=== PATIENT | male | born 1950 | race Caucasian/White ===

== ENCOUNTER 2020-12-15 20:50 | Emergency (ER) | payer MEDICARE, OTHER ==
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
[2020-12-15 22:31] LABS: CORONAVIRUS COVID-19 NAA POSITIVE (NEGATIVE)
[2020-12-16] MEDS ORDERED: Albuterol/Ipratropium 3.0-0.5 MG/3 ML Neb Soln NEB ONE (00:01)
[2020-12-16 00:43] VITALS: BP 139/64; PULSE 112
--- NOTE | 2020-12-18 09:56 | CR ---
CHEST: Portable 12/15/2020 at 10:07 PM CLINICAL HISTORY:Cough COMPARISON:None FINDINGS: There is mild generalized prominence of the lung markings. This may be technical and due to the patient's size. No significant airspace disease or effusion is identified. Impression: Mild generalized increase in the lung markings is most likely technical. If clinical symptomatology persists or worsens a repeat exam is recommended.
== END 2020-12-16 01:41 | disposition other institution (70) ==
LOC: JP.ED 20:50
DX: U07.1 COVID-19 (principal); I48.91 Unspecified atrial fibrillation; Z88.5 Allergy status to narcotic agent; Z88.0 Allergy status to penicillin; Z79.899 Other long term (current) drug therapy
CPT/HCPCS: 0241U; 36415; 71045; 80053; 84484; 85025; 94640; 99285; J7620-GY

== ENCOUNTER 2024-07-03 09:47 | Inpatient (IN) | payer MEDICARE, OTHER ==
[2024-07-03] MEDS: Albuterol/Ipratropium 3.0-0.5 MG/3 ML Neb Soln NEB ONE (10:30)
[2024-07-03] MEDS: Sodium Chloride 0.9% 500 ML IV ONE (10:34)
[2024-07-03] MEDS: methylPREDNISolone Sodium Succinate 125 MG/2 ML SDV ONE (10:34)
[2024-07-03] MEDS: methylPREDNISolone Sodium Succinate 125 MG/2 ML SDV IVPUSH ONE (10:34)
[2024-07-03] MEDS: Diltiazem 180 MG Cap.CD PO ONE (10:34)
[2024-07-03 10:41] LABS: BASOPHILS ABSOLUTE AUTO 0.03 K/uL (0.00-0.10); BASOPHILS PERCENT AUTO 0.2 % (0.1-1.3); HEMATOCRIT 38.9 % (38.4-49.7); HEMOGLOBIN 13.1 g/dL (12.9-16.9); IMMATURE GRAN ABSOLUTE AUTO 0.12 K/uL (0.00-0.23); IMMATURE GRAN PERCENT AUTO 0.7 % (0.0-0.7); LYMPHOCYTES PERCENT AUTO 4.1 % (11.4-47.7); MEAN CORPUSCULAR HEMOGLOBIN 30.5 pg (31.6-35.5); MEAN CORPUSCULAR HGB CONC 33.7 g/dL (31.6-35.5); MEAN CORPUSCULAR VOLUME 90.5 fL (81.4-99.0); MONOCYTES ABSOLUTE AUTO 1.58 K/uL (0.20-0.90); MONOCYTES PERCENT AUTO 9.3 % (3.3-12.6); NEUTROPHILS ABSOLUTE AUTO 14.56 K/uL (1.0-7.6); NEUTROPHILS PERCENT AUTO 85.7 % (40.0-78.1); PLATELET COUNT,PLT 343 K/uL (130-375)
[2024-07-03] MEDS: methylPREDNISolone Sod Succ 125 MG in Dextrose 5% in Water 100 ML IV ONE (10:41)
[2024-07-03 11:14] LABS: CORONAVIRUS COVID-19 NAA NEGATIVE (NEGATIVE); INFLUENZA A NAA NEGATIVE (NEGATIVE); INFLUENZA B NAA NEGATIVE (NEGATIVE); RESPIRATORY SYNCYTIAL VIR NAA NEGATIVE (NEGATIVE)
[2024-07-03] MEDS: Levalbuterol HCl 1.25 MG/3 ML Neb NEB ONE (11:15)
[2024-07-03 11:35] LABS: A/G RATIO 0.6 (1.2-2.2); ALANINE AMINOTRANSFERASE,ALT 68 U/L (12-78); ALBUMIN 2.8 g/dL (3.4-5.0); ALKALINE PHOSPHATASE 112 U/L (46-116); ASPARTATE AMNIOTRANSFERASE,AST 70 U/L (15-37); BLOOD UREA NITROGEN,BUN 35 mg/dL (7-18); CALCIUM 10.3 mg/dL (8.5-10.1); CARBON DIOXIDE,CO2 30 mmol/L (21-32); CHLORIDE,CL 97 mmol/L (100-108); CREATININE 1.2 mg/dL (0.8-1.3); ESTIMATED GFR 63 mL/min (>60); GLUCOSE RANDOM 243 mg/dL (74-106); POTASSIUM,K 3.3 mmol/L (3.6-5.2); PROTEIN TOTAL,TP 7.4 g/dL (6.4-8.2); SODIUM,NA 138 mmol/L (140-148)
[2024-07-03 11:37] LABS: ANION GAP 14.3 mmol/L (5.0-14.0)
[2024-07-03] MEDS: Levofloxacin/Dextrose 5%-Water 750 MG in Premix Bag 1 BAG IV SCH (13:28)
[2024-07-03] MEDS: Meropenem 1 GM in Sodium Chloride 0.9% 100 ML IV ONE (13:30)
[2024-07-03] MEDS ORDERED: Benzonatate 100 MG Cap PO PRN (14:13)
[2024-07-03] MEDS ORDERED: Ondansetron 4 MG/2 ML SDV IV PRN (14:13)
[2024-07-03] MEDS ORDERED: Ondansetron 4 MG Tab.DIS PO PRN (14:13)
[2024-07-03] MEDS: Albuterol/Ipratropium 3.0-0.5 MG/3 ML Neb Soln NEB SCH (14:35)
[2024-07-03] MEDS: methylPREDNISolone Sodium Succinate 125 MG/2 ML SDV IVPUSH SCH (15:51)
[2024-07-03 17:17] LABS: BASE EXCESS ARTERIAL 3.9 mm/L; BICARBONATE,ARTERIAL 27.8 mmol/L (22.0-26.0); CARBOXYHEMOGLOBIN 2.4 % (0.0-1.6); METHEMOGLOBIN 0.8 %; O2 SATURATION ARTERIAL 97.7 % (95.0-98.0); OXYHEMOGLOBIN 94.6 %; PCO2 ARTERIAL 40.7 mmHg (35.0-42.0); TOTAL HEMOGLOBIN 13.1 g/dL (13.5-18.0)
[2024-07-03] MEDS: Insulin Lispro 100 Unit/ML 3 ML KwikPen SUBCUT SCH (17:17)
[2024-07-03] MEDS: Insulin Isophane NPH, Human 100 Units/ML 10 ML Vial SUBCUT SCH (17:17)
[2024-07-03] MEDS: Potassium Chloride 20 MEQ Tab.ER PO ONE (18:11)
[2024-07-03] MEDS: Rosuvastatin 10 MG Tab PO SCH (21:20)
[2024-07-03] MEDS: Apixaban 5 MG Tab PO SCH (21:20)
[2024-07-03] MEDS: Lactobacillus Rhamnosus GG (Probiotic) Cap PO SCH (21:20)
[2024-07-03] MEDS: sulfaSALAzine 500 MG Tab PO SCH (21:20)
[2024-07-03] MEDS: Sodium Chloride 0.9% 1,000 ML IV SCH (22:09)
[2024-07-03 23:16] LABS: APPEARANCE,URINE SLIGHTLY CLOUDY (CLEAR); BILIRUBIN,URINE NEGATIVE (NEGATIVE); COLOR,URINE YELLOW (YELLOW); GLUCOSE,URINE 500 mg/dL (NEGATIVE); KETONES,URINE TRACE mg/dL (NEGATIVE); LEUKOCYTE ESTERASE,URINE NEGATIVE (NEGATIVE); NITRITE,URINE NEGATIVE (NEGATIVE); OCCULT BLOOD,URINE TRACE-LYSED (NEGATIVE); PROTEIN,URINE 100 mg/dL (NEGATIVE); UROBILINOGEN,URINE 0.2 EU/dL (0.2-1.0)
[2024-07-03 23:22] LABS: AMORPHOUS SEDIMENT,URINE FEW; BACTERIA,URINE FEW; EPITHELIAL CELLS,URINE FEW; MUCUS,URINE MANY; WBC,URINE 0-5 (0-5)
[2024-07-04 04:49] LABS: BASE EXCESS ARTERIAL 3.7 mm/L; BICARBONATE,ARTERIAL 27.3 mmol/L (22.0-26.0); CARBOXYHEMOGLOBIN 1.7 % (0.0-1.6); HEMATOCRIT 38.5 % (38.4-49.7); MEAN CORPUSCULAR HEMOGLOBIN 30.4 pg (31.6-35.5); MEAN CORPUSCULAR HGB CONC 33.8 g/dL (31.6-35.5); MEAN CORPUSCULAR VOLUME 90.2 fL (81.4-99.0); METHEMOGLOBIN 0.8 %; O2 SATURATION ARTERIAL 93.2 % (95.0-98.0); OXYHEMOGLOBIN 90.9 %; PCO2 ARTERIAL 39.4 mmHg (35.0-42.0); PO2 ARTERIAL 69.5 mmHg (75.0-100.0); RED BLOOD CELL COUNT 4.27 M/uL (4.14-5.76); TOTAL HEMOGLOBIN 13.5 g/dL (13.5-18.0); WHITE BLOOD CELL COUNT,WBC 18.1 K/uL (3.2-11.0)
[2024-07-04 05:09] LABS: CALCIUM 10.1 mg/dL (8.5-10.1); EST CRCL DRUG DOSING (CG) 68.98 mL/min; POTASSIUM,K 3.3 mmol/L (3.6-5.2)
[2024-07-04 05:16] LABS: MAGNESIUM 1.8 mg/dL (1.8-2.4)
[2024-07-04 05:23] LABS: ANION GAP 14.3 mmol/L (5.0-14.0)
[2024-07-04] MEDS: Insulin Isophane NPH, Human 100 Units/ML 10 ML Vial SUBCUT SCH ×2 (08:15→16:46)
[2024-07-04] MEDS: predniSONE 20 MG Tab PO SCH (08:23)
[2024-07-04] MEDS: Diltiazem 180 MG Cap.CD PO SCH (09:19)
[2024-07-04] MEDS: Folic Acid 1 MG Tab PO SCH (09:21)
[2024-07-04] MEDS: Hydrochlorothiazide 25 MG Tab PO SCH (09:21)
[2024-07-04] MEDS: amLODIPine 5 MG Tab PO SCH (09:22)
[2024-07-04] MEDS: Lisinopril 20 MG Tab PO SCH (09:23)
[2024-07-04] MEDS: Cetirizine 10 MG Tab PO SCH (09:24)
[2024-07-04] MEDS: Levothyroxine 100 MCG Tab PO SCH (09:26)
[2024-07-04] MEDS: Potassium Chloride 10 MEQ in Premix Bag 1 BAG IV SCH (09:39)
[2024-07-04] MEDS ORDERED: Glucagon,Human Recombinant 1 MG Vial IM PRN (16:32)
[2024-07-04] MEDS ORDERED: 50% Dextrose in Water 50 ML Syringe IVPUSH PRN (16:32)
[2024-07-04] MEDS: Insulin Lispro 100 Unit/ML 3 ML KwikPen SUBCUT ONE ×2 (16:46→21:55)
[2024-07-05 05:42] LABS: HEMATOCRIT 36.4 % (38.4-49.7); HEMOGLOBIN 12.1 g/dL (12.9-16.9); MEAN CORPUSCULAR HEMOGLOBIN 30.2 pg (31.6-35.5); MEAN CORPUSCULAR HGB CONC 33.2 g/dL (31.6-35.5); MEAN CORPUSCULAR VOLUME 90.8 fL (81.4-99.0); RED BLOOD CELL COUNT 4.01 M/uL (4.14-5.76); WHITE BLOOD CELL COUNT,WBC 17.5 K/uL (3.2-11.0)
[2024-07-05 06:01] LABS: C-REACTIVE PROTEIN 11.01 mg/dL (<0.50); CALCIUM 9.7 mg/dL (8.5-10.1); CREATININE 1.3 mg/dL (0.8-1.3); EST CRCL DRUG DOSING (CG) 53.06 mL/min; POTASSIUM,K 3.6 mmol/L (3.6-5.2)
[2024-07-05 06:02] LABS: ANION GAP 12.6 mmol/L (5.0-14.0)
[2024-07-05] MEDS: Levofloxacin 250 MG Tab PO SCH (11:31)
[2024-07-05] MEDS: Potassium Chloride 20 MEQ Tab.ER PO ONE (11:31)
[2024-07-05] MEDS: Insulin Lispro 100 Unit/ML 3 ML KwikPen SUBCUT SCH (11:32)
[2024-07-05] MEDS: Insulin Isophane NPH, Human 100 Units/ML 10 ML Vial SUBCUT SCH (17:39)
[2024-07-06 06:08] LABS: HEMOGLOBIN 12.9 g/dL (12.9-16.9); MEAN CORPUSCULAR HEMOGLOBIN 30.2 pg (31.6-35.5); MEAN CORPUSCULAR HGB CONC 33.1 g/dL (31.6-35.5); MEAN CORPUSCULAR VOLUME 91.3 fL (81.4-99.0); RED BLOOD CELL COUNT 4.27 M/uL (4.14-5.76); WHITE BLOOD CELL COUNT,WBC 12.8 K/uL (3.2-11.0)
[2024-07-06 06:26] LABS: CALCIUM 10.2 mg/dL (8.5-10.1); CREATININE 1.2 mg/dL (0.8-1.3); EST CRCL DRUG DOSING (CG) 57.48 mL/min; POTASSIUM,K 3.6 mmol/L (3.6-5.2)
[2024-07-06 06:33] LABS: ANION GAP 10.6 mmol/L (5.0-14.0)
[2024-07-06] MEDS: predniSONE 20 MG Tab PO SCH (08:35)
[2024-07-06] MEDS: Magnesium Hydroxide 400 MG/5 ML Susp 30 ML Cup PO PRN (09:27)
[2024-07-06] MEDS: Sennosides/Docusate Sodium 50-8.6 MG Tab PO PRN (09:27)
[2024-07-06] MEDS: Insulin Isophane NPH, Human 100 Units/ML 10 ML Vial SUBCUT SCH (16:40)
[2024-07-06] MEDS: Acetaminophen 325 MG Tab PO PRN (19:06)
[2024-07-07 06:13] LABS: HEMATOCRIT 41.5 % (38.4-49.7); HEMOGLOBIN 13.8 g/dL (12.9-16.9); MEAN CORPUSCULAR HEMOGLOBIN 29.9 pg (31.6-35.5); MEAN CORPUSCULAR HGB CONC 33.3 g/dL (31.6-35.5); RED BLOOD CELL COUNT 4.61 M/uL (4.14-5.76); WHITE BLOOD CELL COUNT,WBC 11.7 K/uL (3.2-11.0)
[2024-07-07 06:38] LABS: A/G RATIO 0.5 (1.2-2.2); ALANINE AMINOTRANSFERASE,ALT 90 U/L (12-78); ALBUMIN 2.5 g/dL (3.4-5.0); ALKALINE PHOSPHATASE 110 U/L (46-116); ANION GAP 8.3 mmol/L (5.0-14.0); ASPARTATE AMNIOTRANSFERASE,AST 43 U/L (15-37); BILIRUBIN TOTAL 0.5 mg/dL (0.2-1.0); BLOOD UREA NITROGEN,BUN 25 mg/dL (7-18); CALCIUM 10.1 mg/dL (8.5-10.1); CARBON DIOXIDE,CO2 34 mmol/L (21-32); CHLORIDE,CL 99 mmol/L (100-108); CREATININE 1.1 mg/dL (0.8-1.3); EST CRCL DRUG DOSING (CG) 62.71 mL/min; ESTIMATED GFR 70 mL/min (>60); GLUCOSE RANDOM 120 mg/dL (74-106); POTASSIUM,K 3.3 mmol/L (3.6-5.2); PROTEIN TOTAL,TP 7.2 g/dL (6.4-8.2); SODIUM,NA 138 mmol/L (140-148)
[2024-07-07] MEDS: Potassium Chloride 20 MEQ Tab.ER PO SCH (08:13)
[2024-07-07] MEDS: traMADol 50 MG Tab PO PRN (11:06)
[2024-07-07] MEDS: Doxycycline 100 MG Cap PO SCH (15:26)
[2024-07-07] MEDS: Cefepime 2 GM in Sodium Chloride 0.9% 50 ML IV SCH (15:27)
[2024-07-08] MEDS: Albuterol 0.083% 2.5 MG/3 ML Neb Soln NEB PRN (02:00)
[2024-07-08 05:57] LABS: HEMATOCRIT 39.6 % (38.4-49.7); MEAN CORPUSCULAR HGB CONC 32.8 g/dL (31.6-35.5); MEAN CORPUSCULAR VOLUME 91.5 fL (81.4-99.0); RED BLOOD CELL COUNT 4.33 M/uL (4.14-5.76); WHITE BLOOD CELL COUNT,WBC 12.6 K/uL (3.2-11.0)
[2024-07-08 06:20] LABS: A/G RATIO 0.6 (1.2-2.2); ALANINE AMINOTRANSFERASE,ALT 72 U/L (12-78); ALBUMIN 2.3 g/dL (3.4-5.0); ALKALINE PHOSPHATASE 95 U/L (46-116); ASPARTATE AMNIOTRANSFERASE,AST 34 U/L (15-37); BILIRUBIN TOTAL 0.5 mg/dL (0.2-1.0); BLOOD UREA NITROGEN,BUN 29 mg/dL (7-18); CALCIUM 9.8 mg/dL (8.5-10.1); CARBON DIOXIDE,CO2 36 mmol/L (21-32); CHLORIDE,CL 95 mmol/L (100-108); CREATININE 1.3 mg/dL (0.8-1.3); EST CRCL DRUG DOSING (CG) 53.06 mL/min; ESTIMATED GFR 57 mL/min (>60); GLUCOSE RANDOM 165 mg/dL (74-106); POTASSIUM,K 3.7 mmol/L (3.6-5.2); PROTEIN TOTAL,TP 6.3 g/dL (6.4-8.2); SODIUM,NA 136 mmol/L (140-148)
[2024-07-08 06:24] LABS: ANION GAP 8.7 mmol/L (5.0-14.0)
[2024-07-08] MEDS: Furosemide 20 MG/2 ML VIAL IVPUSH ONE (09:52)
[2024-07-08] MEDS: Polyethylene Glycol 3350 Powder 17 GM Packet PO SCH (09:52)
[2024-07-08] MEDS: Bisacodyl 10 MG Supp RECTAL PRN (14:29)
[2024-07-09] MEDS: Furosemide 20 MG/2 ML VIAL IVPUSH ONE (05:39)
[2024-07-09 05:49] LABS: HEMATOCRIT 41.6 % (38.4-49.7); HEMOGLOBIN 13.8 g/dL (12.9-16.9); MEAN CORPUSCULAR HEMOGLOBIN 29.9 pg (31.6-35.5); MEAN CORPUSCULAR HGB CONC 33.2 g/dL (31.6-35.5); MEAN CORPUSCULAR VOLUME 90.2 fL (81.4-99.0); RED BLOOD CELL COUNT 4.61 M/uL (4.14-5.76); WHITE BLOOD CELL COUNT,WBC 15.2 K/uL (3.2-11.0)
[2024-07-09 06:13] LABS: A/G RATIO 0.5 (1.2-2.2); ALANINE AMINOTRANSFERASE,ALT 64 U/L (12-78); ALBUMIN 2.3 g/dL (3.4-5.0); ALKALINE PHOSPHATASE 97 U/L (46-116); ANION GAP 11.8 mmol/L (5.0-14.0); ASPARTATE AMNIOTRANSFERASE,AST 32 U/L (15-37); BILIRUBIN TOTAL 0.6 mg/dL (0.2-1.0); BLOOD UREA NITROGEN,BUN 32 mg/dL (7-18); CALCIUM 9.9 mg/dL (8.5-10.1); CARBON DIOXIDE,CO2 31 mmol/L (21-32); CHLORIDE,CL 97 mmol/L (100-108); CREATININE 1.3 mg/dL (0.8-1.3); EST CRCL DRUG DOSING (CG) 53.06 mL/min; ESTIMATED GFR 57 mL/min (>60); GLUCOSE RANDOM 107 mg/dL (74-106); POTASSIUM,K 3.8 mmol/L (3.6-5.2); PROTEIN TOTAL,TP 7.2 g/dL (6.4-8.2); SODIUM,NA 136 mmol/L (140-148)
[2024-07-09 08:29] LABS: BASE EXCESS ARTERIAL 8.9 mm/L; BICARBONATE,ARTERIAL 30.5 mmol/L (22.0-26.0); CARBOXYHEMOGLOBIN 2.5 % (0.0-1.6); METHEMOGLOBIN 0.8 %; O2 SATURATION ARTERIAL 88.9 % (95.0-98.0); PCO2 ARTERIAL 30.8 mmHg (35.0-42.0); PO2 ARTERIAL 49.9 mmHg (75.0-100.0); TOTAL HEMOGLOBIN 14.6 g/dL (13.5-18.0)
[2024-07-09] MEDS: Sodium Phosphate,Monobasic/Sodium Phosphate,Dibasic Enema 133 ML Bottle RECTAL ONE (09:37)
[2024-07-09] MEDS: LORazepam 2 MG/ML SDV IVPUSH PRN (20:28)
[2024-07-10] MEDS: guaiFENesin/Dextromethorphan 100-10 MG/5 ML Soln 10 ML Cup PO PRN (02:05)
[2024-07-10 05:51] LABS: HEMATOCRIT 41.5 % (38.4-49.7); HEMOGLOBIN 13.5 g/dL (12.9-16.9); MEAN CORPUSCULAR HEMOGLOBIN 29.5 pg (31.6-35.5); MEAN CORPUSCULAR HGB CONC 32.5 g/dL (31.6-35.5); MEAN CORPUSCULAR VOLUME 90.8 fL (81.4-99.0); RED BLOOD CELL COUNT 4.57 M/uL (4.14-5.76); WHITE BLOOD CELL COUNT,WBC 15.5 K/uL (3.2-11.0)
[2024-07-10 06:09] LABS: ALANINE AMINOTRANSFERASE,ALT 58 U/L (12-78); ALBUMIN 2.3 g/dL (3.4-5.0); ALKALINE PHOSPHATASE 90 U/L (46-116); ASPARTATE AMNIOTRANSFERASE,AST 34 U/L (15-37); BILIRUBIN TOTAL 0.7 mg/dL (0.2-1.0); BLOOD UREA NITROGEN,BUN 31 mg/dL (7-18); CALCIUM 9.7 mg/dL (8.5-10.1); CARBON DIOXIDE,CO2 32 mmol/L (21-32); CHLORIDE,CL 97 mmol/L (100-108); CREATININE 1.3 mg/dL (0.8-1.3); EST CRCL DRUG DOSING (CG) 53.06 mL/min; ESTIMATED GFR 57 mL/min (>60); GLUCOSE RANDOM 118 mg/dL (74-106); POTASSIUM,K 3.9 mmol/L (3.6-5.2); PROTEIN TOTAL,TP 6.5 g/dL (6.4-8.2); SODIUM,NA 136 mmol/L (140-148)
[2024-07-10 06:17] LABS: A/G RATIO 0.6 (1.2-2.2); ANION GAP 10.9 mmol/L (5.0-14.0)
[2024-07-10 06:24] LABS: BASE EXCESS ARTERIAL 7.4 mm/L; BICARBONATE,ARTERIAL 31.8 mmol/L (22.0-26.0); METHEMOGLOBIN 0.9 %; O2 SATURATION ARTERIAL 93.6 % (95.0-98.0); OXYHEMOGLOBIN 91.8 %; PCO2 ARTERIAL 44.7 mmHg (35.0-42.0); PO2 ARTERIAL 72.6 mmHg (75.0-100.0); TOTAL HEMOGLOBIN 13.8 g/dL (13.5-18.0)
[2024-07-10] MEDS: predniSONE 20 MG Tab PO ONE (12:22)
[2024-07-10] MEDS: Polyethylene Glycol 3350 Powder 17 GM Packet PO ONE (12:24)
[2024-07-10] MEDS: Bisacodyl 10 MG Supp RECTAL ONE (12:26)
[2024-07-10] MEDS: Acetylcysteine 20% 200 MG/ML 4 ML Nebulizer Soln SDV NEB SCH (14:18)
[2024-07-11 04:56] LABS: BASE EXCESS ARTERIAL 6.9 mm/L; BICARBONATE,ARTERIAL 31.1 mmol/L (22.0-26.0); CARBOXYHEMOGLOBIN 1.4 % (0.0-1.6); METHEMOGLOBIN 0.9 %; O2 SATURATION ARTERIAL 88.6 % (95.0-98.0); OXYHEMOGLOBIN 86.6 %; PCO2 ARTERIAL 43.7 mmHg (35.0-42.0); PO2 ARTERIAL 57.6 mmHg (75.0-100.0); TOTAL HEMOGLOBIN 13.5 g/dL (13.5-18.0)
[2024-07-11 04:58] LABS: HEMATOCRIT 40.5 % (38.4-49.7); MEAN CORPUSCULAR HEMOGLOBIN 29.8 pg (31.6-35.5); MEAN CORPUSCULAR HGB CONC 32.1 g/dL (31.6-35.5); MEAN CORPUSCULAR VOLUME 92.9 fL (81.4-99.0); RED BLOOD CELL COUNT 4.36 M/uL (4.14-5.76); WHITE BLOOD CELL COUNT,WBC 15.4 K/uL (3.2-11.0)
[2024-07-11 05:20] LABS: A/G RATIO 0.5 (1.2-2.2); ALANINE AMINOTRANSFERASE,ALT 49 U/L (12-78); ALBUMIN 2.1 g/dL (3.4-5.0); ALKALINE PHOSPHATASE 91 U/L (46-116); ANION GAP 7.3 mmol/L (5.0-14.0); ASPARTATE AMNIOTRANSFERASE,AST 27 U/L (15-37); BILIRUBIN TOTAL 0.5 mg/dL (0.2-1.0); BLOOD UREA NITROGEN,BUN 29 mg/dL (7-18); CALCIUM 10.4 mg/dL (8.5-10.1); CARBON DIOXIDE,CO2 31 mmol/L (21-32); CHLORIDE,CL 98 mmol/L (100-108); CREATININE 1.1 mg/dL (0.8-1.3); EST CRCL DRUG DOSING (CG) 62.71 mL/min; ESTIMATED GFR 70 mL/min (>60); GLUCOSE RANDOM 184 mg/dL (74-106); POTASSIUM,K 4.3 mmol/L (3.6-5.2); PROTEIN TOTAL,TP 6.3 g/dL (6.4-8.2); SODIUM,NA 132 mmol/L (140-148)
[2024-07-11] MEDS: predniSONE 20 MG Tab PO SCH (08:06)
[2024-07-11] MEDS ORDERED: Sodium Phosphate,Monobasic/Sodium Phosphate,Dibasic Enema 133 ML Bottle RECTAL PRN (09:50)
[2024-07-11] MEDS: Bisacodyl 10 MG Supp RECTAL ONE (11:29)
[2024-07-11] MEDS: acetaZOLAMIDE 250 MG Tab PO SCH (11:31)
[2024-07-11] MEDS: Polyethylene Glycol 3350 Powder 17 GM Packet PO ONE (11:32)
[2024-07-11] MEDS: Cefepime 2 GM in Sodium Chloride 0.9% 50 ML IV SCH (14:56)
[2024-07-12 05:30] LABS: HEMATOCRIT 40.6 % (38.4-49.7); HEMOGLOBIN 13.3 g/dL (12.9-16.9); MEAN CORPUSCULAR HEMOGLOBIN 30.4 pg (31.6-35.5); MEAN CORPUSCULAR HGB CONC 32.8 g/dL (31.6-35.5); MEAN CORPUSCULAR VOLUME 92.7 fL (81.4-99.0); RED BLOOD CELL COUNT 4.38 M/uL (4.14-5.76)
[2024-07-12 05:47] LABS: CALCIUM 9.6 mg/dL (8.5-10.1); CREATININE 1.2 mg/dL (0.8-1.3); EST CRCL DRUG DOSING (CG) 57.48 mL/min
[2024-07-12] MEDS: traMADol 50 MG Tab PO ONE (10:28)
[2024-07-12] MEDS: Lactulose Soln 10 GM/15 ML 15 ML UD Cup PO ONE (14:29)
[2024-07-12] MEDS: LORazepam 0.5 MG Tab PO SCH (20:08)
[2024-07-13] MEDS: LORazepam 0.5 MG Tab PO ONE (03:16)
[2024-07-13 06:01] LABS: HEMATOCRIT 40.2 % (38.4-49.7); MEAN CORPUSCULAR HEMOGLOBIN 29.9 pg (31.6-35.5); MEAN CORPUSCULAR HGB CONC 32.3 g/dL (31.6-35.5); MEAN CORPUSCULAR VOLUME 92.4 fL (81.4-99.0); RED BLOOD CELL COUNT 4.35 M/uL (4.14-5.76); WHITE BLOOD CELL COUNT,WBC 16.6 K/uL (3.2-11.0)
[2024-07-13 06:25] LABS: A/G RATIO 0.5 (1.2-2.2); ALANINE AMINOTRANSFERASE,ALT 52 U/L (12-78); ALBUMIN 2.3 g/dL (3.4-5.0); ALKALINE PHOSPHATASE 92 U/L (46-116); ASPARTATE AMNIOTRANSFERASE,AST 28 U/L (15-37); BILIRUBIN TOTAL 0.5 mg/dL (0.2-1.0); BLOOD UREA NITROGEN,BUN 35 mg/dL (7-18); CALCIUM 9.9 mg/dL (8.5-10.1); CARBON DIOXIDE,CO2 31 mmol/L (21-32); CHLORIDE,CL 98 mmol/L (100-108); CREATININE 1.3 mg/dL (0.8-1.3); EST CRCL DRUG DOSING (CG) 53.06 mL/min; ESTIMATED GFR 57 mL/min (>60); GLUCOSE RANDOM 80 mg/dL (74-106); POTASSIUM,K 4.1 mmol/L (3.6-5.2); PROTEIN TOTAL,TP 6.6 g/dL (6.4-8.2); SODIUM,NA 135 mmol/L (140-148)
[2024-07-13 06:26] LABS: ANION GAP 10.1 mmol/L (5.0-14.0)
[2024-07-13] MEDS ORDERED: Sodium Chloride 0.9% 10 ML Syringe IV PRN (08:04)
[2024-07-13] MEDS: Levothyroxine 100 MCG Tab PO SCH (08:05)
[2024-07-13] MEDS: predniSONE 20 MG Tab PO SCH (08:06)
[2024-07-13] MEDS: Magnesium Citrate Solution 296 ML Bottle PO ONE (10:42)
[2024-07-13] MEDS: Docusate Sodium 100 MG Cap PO SCH (13:17)
[2024-07-14 05:16] LABS: HEMATOCRIT 39.3 % (38.4-49.7); MEAN CORPUSCULAR HGB CONC 33.1 g/dL (31.6-35.5); MEAN CORPUSCULAR VOLUME 90.6 fL (81.4-99.0); RED BLOOD CELL COUNT 4.34 M/uL (4.14-5.76); WHITE BLOOD CELL COUNT,WBC 14.5 K/uL (3.2-11.0)
[2024-07-14 05:34] LABS: A/G RATIO 0.5 (1.2-2.2); ALANINE AMINOTRANSFERASE,ALT 48 U/L (12-78); ALKALINE PHOSPHATASE 96 U/L (46-116); ANION GAP 9.9 mmol/L (5.0-14.0); ASPARTATE AMNIOTRANSFERASE,AST 26 U/L (15-37); BILIRUBIN TOTAL 0.4 mg/dL (0.2-1.0); BLOOD UREA NITROGEN,BUN 30 mg/dL (7-18); CALCIUM 9.6 mg/dL (8.5-10.1); CARBON DIOXIDE,CO2 30 mmol/L (21-32); CHLORIDE,CL 99 mmol/L (100-108); CREATININE 1.2 mg/dL (0.8-1.3); EST CRCL DRUG DOSING (CG) 57.48 mL/min; ESTIMATED GFR 63 mL/min (>60); GLUCOSE RANDOM 189 mg/dL (74-106); POTASSIUM,K 3.9 mmol/L (3.6-5.2); PROTEIN TOTAL,TP 6.2 g/dL (6.4-8.2); SODIUM,NA 135 mmol/L (140-148)
[2024-07-14] MEDS ORDERED: LORazepam 0.5 MG Tab PO PRN (07:36)
[2024-07-14] MEDS: Cefdinir 300 MG Cap PO SCH (08:07)
[2024-07-14] MEDS: Docusate Sodium 100 MG Cap PO PRN (08:08)
[2024-07-14 10:15] VITALS: BP 108/58; PULSE 88
[2024-07-14] MEDS ORDERED: Insulin NPH HUM/REG Insulin HM 100 UNIT/ML 3 ML Vial SQ SCH (17:00)
[2024-07-14] MEDS ORDERED: metFORMIN 500 MG Tab PO SCH (17:00)
[2024-07-14] MEDS ORDERED: Hydroxychloroquine 200 MG Tab PO SCH (21:00)
[2024-07-15] MEDS ORDERED: Insulin NPH HUM/REG Insulin HM 100 UNIT/ML 3 ML Vial SQ SCH (09:00)
[2024-07-15] MEDS ORDERED: Non-Formulary Medication 1 Each (Metformin Hcl [Metformin Hcl] 1,000 MG Tablet) PO SCH (09:00)
[2024-07-15] MEDS ORDERED: Cholecalciferol (Vitamin D3) 25 MCG Tab PO SCH (09:00)
[2024-07-19] MEDS ORDERED: Methotrexate 2.5 MG Tab PO SCH (08:00)
== END 2024-07-14 11:00 | DRG 193 ==
LOC: JP.ED 09:47 → JP.2SS 13:13 → JP.MS 14:13 → JP.2SS 21:59 → JP.MS 21:59 → JP.ICU 07-09 13:31
PROVIDERS: ADMIT Internal Medicine; ATTEND Hospitalist
PROC: 5A09357 Assistance with Respiratory Ventilation, Less than 24 Consecutive Hours, Continuous Positive Airway Pressure (ICD-10-PCS; principal; 2024-07-03)
PROC: 4A033R1 Measurement of Arterial Saturation, Peripheral, Percutaneous Approach (ICD-10-PCS; 2024-07-06)
PROC: 5A0935A Assistance with Respiratory Ventilation, Less than 24 Consecutive Hours, High Flow/Velocity Cannula (ICD-10-PCS; 2024-07-09)
PROC: 5A0935A Assistance with Respiratory Ventilation, Less than 24 Consecutive Hours, High Flow/Velocity Cannula (ICD-10-PCS; 2024-07-10)
DX: J18.9 Pneumonia, unspecified organism (principal); J44.9 Chronic obstructive pulmonary disease, unspecified; J96.91 Respiratory failure, unspecified with hypoxia; E66.2 Morbid (severe) obesity with alveolar hypoventilation; E78.00 Pure hypercholesterolemia, unspecified; J44.0 Chronic obstructive pulmonary disease with (acute) lower respiratory infection; E66.9 Obesity, unspecified; J44.1 Chronic obstructive pulmonary disease with (acute) exacerbation; Z90.49 Acquired absence of other specified parts of digestive tract; Z79.4 Long term (current) use of insulin; Z79.2 Long term (current) use of antibiotics; I48.91 Unspecified atrial fibrillation; Z79.890 Hormone replacement therapy; J20.9 Acute bronchitis, unspecified; Z66 Do not resuscitate; I10 Essential (primary) hypertension; H91.90 Unspecified hearing loss, unspecified ear; E03.9 Hypothyroidism, unspecified; E11.9 Type 2 diabetes mellitus without complications; E87.6 Hypokalemia; M06.9 Rheumatoid arthritis, unspecified; M25.552 Pain in left hip; M25.511 Pain in right shoulder; K59.00 Constipation, unspecified; Z88.5 Allergy status to narcotic agent; Z88.0 Allergy status to penicillin; Z79.01 Long term (current) use of anticoagulants; Z90.89 Acquired absence of other organs; Z79.84 Long term (current) use of oral hypoglycemic drugs; Z68.38 Body mass index [BMI] 38.0-38.9, adult; Z79.899 Other long term (current) drug therapy; Z87.891 Personal history of nicotine dependence
CPT/HCPCS: 0241U; 36415; 36600; 71045; 71275; 72195; 73030; 73060; 73502; 73700; 76377; 80048; 80053; 81001; 82550; 82803; 82947; 83605; 83735; 84484; 85025; 85027; 86140; 87040; 93005; 93010; 94640; 94660; 94668; 96125; 96374; 97110; 97161; 97165; 97530; 97535; 99222; 99232; 99239; 99285; A9270-GY; J0692; J1815; J1815-GY; J1940; J1956; J2060; J2919; J3480; J3490; J7030; J7040; J7512; J7612-GY; J7620

== ENCOUNTER 2024-08-04 13:36 | Emergency (ER) | payer MEDICARE, OTHER ==
[2024-08-04 15:11] LABS: BASOPHILS ABSOLUTE AUTO 0.05 K/uL (0.00-0.10); BASOPHILS PERCENT AUTO 0.5 % (0.1-1.3); EOSINOPHILS ABSOLUTE AUTO 0.13 K/uL (0.00-0.40); EOSINOPHILS PERCENT AUTO 1.2 % (0.0-5.4); HEMATOCRIT 39.1 % (38.4-49.7); HEMOGLOBIN 12.7 g/dL (12.9-16.9); IMMATURE GRAN ABSOLUTE AUTO 0.08 K/uL (0.00-0.23); IMMATURE GRAN PERCENT AUTO 0.7 % (0.0-0.7); LYMPHOCYTES ABSOLUTE AUTO 0.92 K/uL (0.8-3.3); LYMPHOCYTES PERCENT AUTO 8.5 % (11.4-47.7); MEAN CORPUSCULAR HEMOGLOBIN 29.7 pg (31.6-35.5); MEAN CORPUSCULAR HGB CONC 32.5 g/dL (31.6-35.5); MEAN CORPUSCULAR VOLUME 91.4 fL (81.4-99.0); MONOCYTES ABSOLUTE AUTO 0.76 K/uL (0.20-0.90); MONOCYTES PERCENT AUTO 7.1 % (3.3-12.6); NEUTROPHILS ABSOLUTE AUTO 8.84 K/uL (1.0-7.6); PLATELET COUNT,PLT 521 K/uL (130-375); RED BLOOD CELL COUNT 4.28 M/uL (4.14-5.76); WHITE BLOOD CELL COUNT,WBC 10.8 K/uL (3.2-11.0)
[2024-08-04 15:31] LABS: A/G RATIO 0.4 (1.2-2.2); ALANINE AMINOTRANSFERASE,ALT 49 U/L (12-78); ALKALINE PHOSPHATASE 140 U/L (46-116); ASPARTATE AMNIOTRANSFERASE,AST 53 U/L (15-37); BILIRUBIN TOTAL 0.4 mg/dL (0.2-1.0); BLOOD UREA NITROGEN,BUN 38 mg/dL (7-18); CALCIUM 10.3 mg/dL (8.5-10.1); CARBON DIOXIDE,CO2 29 mmol/L (21-32); CHLORIDE,CL 97 mmol/L (100-108); CREATININE 1.8 mg/dL (0.8-1.3); EST CRCL DRUG DOSING (CG) 38.32 mL/min; ESTIMATED GFR 39 mL/min (>60); GLUCOSE RANDOM 209 mg/dL (74-106); POTASSIUM,K 4.8 mmol/L (3.6-5.2); PROTEIN TOTAL,TP 7.3 g/dL (6.4-8.2); SODIUM,NA 135 mmol/L (140-148)
[2024-08-04 15:32] LABS: ANION GAP 13.8 mmol/L (5.0-14.0)
[2024-08-04] MEDS: Sodium Chloride 0.9% 1,000 ML IV SCH (15:48)
[2024-08-04] MEDS: Ketorolac 30 MG/ML SDV IM ONE (15:51)
[2024-08-04] MEDS: Acetaminophen/oxyCODONE 325-5 MG Tab PO ONE (19:31)
[2024-08-04 20:50] VITALS: BP 114/54; PULSE 103
== END 2024-08-04 20:43 ==
LOC: JP.ED 13:36
DX: M54.42 Lumbago with sciatica, left side (principal); I10 Essential (primary) hypertension; I48.91 Unspecified atrial fibrillation; E11.9 Type 2 diabetes mellitus without complications; E03.9 Hypothyroidism, unspecified; E66.9 Obesity, unspecified; Z86.16 Personal history of COVID-19; Z90.49 Acquired absence of other specified parts of digestive tract; Z87.891 Personal history of nicotine dependence; Z68.36 Body mass index [BMI] 36.0-36.9, adult; Z79.899 Other long term (current) drug therapy; Z79.01 Long term (current) use of anticoagulants; Z79.84 Long term (current) use of oral hypoglycemic drugs; Z88.5 Allergy status to narcotic agent; Z88.0 Allergy status to penicillin
CPT/HCPCS: 36415; 71045; 72131; 76377; 80053; 83605; 85025; 96372; 99284; A9270; J1885; J7030

== ENCOUNTER 2024-08-10 14:08 | Emergency (ER) | payer MEDICARE, OTHER ==
[2024-08-10 15:14] LABS: BASE EXCESS VENOUS 0.6 mm/L; BICARBONATE,VENOUS 26.2 mmol/L; METHEMOGLOBIN 0.4 %; O2 SATURATION VENOUS 43.8; OXYHEMOGLOBIN 42.7 %; PCO2 VENOUS 48.5 mm/Hg; PH,VENOUS 7.352 (7.350-7.450); TOTAL HEMOGLOBIN 13.3 g/dL (13.5-18.0)
[2024-08-10 15:16] LABS: PO2 VENOUS 29.1 mm/Hg
[2024-08-10 15:21] LABS: BASOPHILS ABSOLUTE AUTO 0.09 K/uL (0.00-0.10); BASOPHILS PERCENT AUTO 0.8 % (0.1-1.3); EOSINOPHILS ABSOLUTE AUTO 0.18 K/uL (0.00-0.40); EOSINOPHILS PERCENT AUTO 1.6 % (0.0-5.4); HEMATOCRIT 41.3 % (38.4-49.7); HEMOGLOBIN 12.8 g/dL (12.9-16.9); IMMATURE GRAN ABSOLUTE AUTO 0.06 K/uL (0.00-0.23); IMMATURE GRAN PERCENT AUTO 0.5 % (0.0-0.7); LYMPHOCYTES PERCENT AUTO 7.9 % (11.4-47.7); MEAN CORPUSCULAR HEMOGLOBIN 29.2 pg (31.6-35.5); MEAN CORPUSCULAR VOLUME 94.1 fL (81.4-99.0); MONOCYTES ABSOLUTE AUTO 0.88 K/uL (0.20-0.90); MONOCYTES PERCENT AUTO 7.8 % (3.3-12.6); NEUTROPHILS ABSOLUTE AUTO 9.22 K/uL (1.0-7.6); NEUTROPHILS PERCENT AUTO 81.4 % (40.0-78.1); PLATELET COUNT,PLT 566 K/uL (130-375); RED BLOOD CELL COUNT 4.39 M/uL (4.14-5.76); WHITE BLOOD CELL COUNT,WBC 11.3 K/uL (3.2-11.0)
[2024-08-10] MEDS: Sodium Chloride 0.9% 1,000 ML IV SCH (15:24)
[2024-08-10 15:38] LABS: A/G RATIO 0.4 (1.2-2.2); ALANINE AMINOTRANSFERASE,ALT 46 U/L (12-78); ALBUMIN 2.1 g/dL (3.4-5.0); ALKALINE PHOSPHATASE 145 U/L (46-116); ANION GAP 13.2 mmol/L (5.0-14.0); ASPARTATE AMNIOTRANSFERASE,AST 56 U/L (15-37); BILIRUBIN TOTAL 0.3 mg/dL (0.2-1.0); BLOOD UREA NITROGEN,BUN 55 mg/dL (7-18); CALCIUM 11.1 mg/dL (8.5-10.1); CARBON DIOXIDE,CO2 28 mmol/L (21-32); CHLORIDE,CL 100 mmol/L (100-108); CREATININE 2.1 mg/dL (0.8-1.3); ESTIMATED GFR 32 mL/min (>60); GLUCOSE RANDOM 193 mg/dL (74-106); POTASSIUM,K 5.2 mmol/L (3.6-5.2); PROTEIN TOTAL,TP 7.8 g/dL (6.4-8.2); SODIUM,NA 136 mmol/L (140-148)
[2024-08-10 18:00] VITALS: BP 99/49; PULSE 83
== END 2024-08-10 18:22 | disposition home or self-care (01) ==
LOC: JP.ED 14:08
DX: M51.369 Other intervertebral disc degeneration, lumbar region without mention of lumbar back pain or lower extremity pain (principal); M48.061 Spinal stenosis, lumbar region without neurogenic claudication; E11.9 Type 2 diabetes mellitus without complications; E66.01 Morbid (severe) obesity due to excess calories; Z68.41 Body mass index [BMI] 40.0-44.9, adult; I10 Essential (primary) hypertension; I48.91 Unspecified atrial fibrillation; E03.9 Hypothyroidism, unspecified; Z86.16 Personal history of COVID-19; Z90.49 Acquired absence of other specified parts of digestive tract; Z79.890 Hormone replacement therapy; Z79.01 Long term (current) use of anticoagulants; Z79.4 Long term (current) use of insulin; Z79.899 Other long term (current) drug therapy; Z79.84 Long term (current) use of oral hypoglycemic drugs; Z88.0 Allergy status to penicillin; Z88.5 Allergy status to narcotic agent
CPT/HCPCS: 36415; 80053; 82803; 83880; 84145; 85025; 93005; 93010; 96360; 96361; 99284; 99285; J7030

== ENCOUNTER 2024-08-16 22:53 | Inpatient (IN) | payer MEDICARE, OTHER ==
[2024-08-16 23:06] LABS: BASOPHILS ABSOLUTE AUTO 0.11 K/uL (0.00-0.10); BASOPHILS PERCENT AUTO 0.9 % (0.1-1.3); EOSINOPHILS ABSOLUTE AUTO 0.24 K/uL (0.00-0.40); HEMOGLOBIN 12.2 g/dL (12.9-16.9); IMMATURE GRAN ABSOLUTE AUTO 0.07 K/uL (0.00-0.23); IMMATURE GRAN PERCENT AUTO 0.6 % (0.0-0.7); LYMPHOCYTES ABSOLUTE AUTO 1.16 K/uL (0.8-3.3); LYMPHOCYTES PERCENT AUTO 9.7 % (11.4-47.7); MEAN CORPUSCULAR HEMOGLOBIN 29.1 pg (31.6-35.5); MEAN CORPUSCULAR HGB CONC 31.3 g/dL (31.6-35.5); MEAN CORPUSCULAR VOLUME 93.1 fL (81.4-99.0); MONOCYTES ABSOLUTE AUTO 1.31 K/uL (0.20-0.90); MONOCYTES PERCENT AUTO 10.9 % (3.3-12.6); NEUTROPHILS ABSOLUTE AUTO 9.09 K/uL (1.0-7.6); NEUTROPHILS PERCENT AUTO 75.9 % (40.0-78.1); PLATELET COUNT,PLT 492 K/uL (130-375); RED BLOOD CELL COUNT 4.19 M/uL (4.14-5.76)
[2024-08-16 23:22] LABS: INR 1.3; PROTHROMBIN TIME 13.6 sec (9.2-10.6)
[2024-08-16 23:27] LABS: A/G RATIO 0.4 (1.2-2.2); ALANINE AMINOTRANSFERASE,ALT 33 U/L (12-78); ALBUMIN 2.2 g/dL (3.4-5.0); ALKALINE PHOSPHATASE 144 U/L (46-116); ASPARTATE AMNIOTRANSFERASE,AST 27 U/L (15-37); BILIRUBIN TOTAL 0.3 mg/dL (0.2-1.0); BLOOD UREA NITROGEN,BUN 47 mg/dL (7-18); C-REACTIVE PROTEIN 5.38 mg/dL (<0.50); CALCIUM 10.8 mg/dL (8.5-10.1); CARBON DIOXIDE,CO2 32 mmol/L (21-32); CHLORIDE,CL 103 mmol/L (100-108); CREATININE 1.6 mg/dL (0.8-1.3); ESTIMATED GFR 44 mL/min (>60); GLUCOSE RANDOM 76 mg/dL (74-106); POTASSIUM,K 5.1 mmol/L (3.6-5.2); PROTEIN TOTAL,TP 7.5 g/dL (6.4-8.2); SODIUM,NA 140 mmol/L (140-148)
[2024-08-16 23:32] LABS: LACTIC ACID 1.4 mmol/L (0.4-2.0)
[2024-08-16] MEDS: 50% Dextrose in Water 50 ML Syringe IVPUSH ONE (23:59)
[2024-08-17] MEDS: Sodium Chloride 0.9% 1,000 ML IV SCH
[2024-08-17] MEDS: Levofloxacin/Dextrose 5%-Water 500 MG in Premix Bag 1 BAG IV ONE (00:33)
[2024-08-17 01:26] LABS: MAGNESIUM 1.8 mg/dL (1.8-2.4)
[2024-08-17] MEDS ORDERED: Acetaminophen 325 MG Tab PO PRN (01:54)
[2024-08-17] MEDS ORDERED: Albuterol 0.083% 2.5 MG/3 ML Neb Soln NEB PRN (01:54)
[2024-08-17] MEDS ORDERED: Ondansetron 4 MG Tab.DIS PO PRN (01:54)
[2024-08-17] MEDS ORDERED: Ondansetron 4 MG/2 ML SDV IV PRN (01:54)
[2024-08-17] MEDS ORDERED: tiZANidine 2 MG Tab PO PRN (02:49)
[2024-08-17] MEDS: Acetaminophen/oxyCODONE 325-5 MG Tab PO PRN (03:01)
[2024-08-17 05:55] LABS: HEMATOCRIT 35.7 % (38.4-49.7); HEMOGLOBIN 11.3 g/dL (12.9-16.9); MEAN CORPUSCULAR HEMOGLOBIN 29.6 pg (31.6-35.5); MEAN CORPUSCULAR HGB CONC 31.7 g/dL (31.6-35.5); MEAN CORPUSCULAR VOLUME 93.5 fL (81.4-99.0); RED BLOOD CELL COUNT 3.82 M/uL (4.14-5.76)
[2024-08-17] MEDS ORDERED: Albuterol/Ipratropium 3.0-0.5 MG/3 ML Neb Soln NEB SCH (06:00)
[2024-08-17 06:05] LABS: CALCIUM 10.1 mg/dL (8.5-10.1); CREATININE 1.5 mg/dL (0.8-1.3); EST CRCL DRUG DOSING (CG) 45.99 mL/min; POTASSIUM,K 4.7 mmol/L (3.6-5.2)
[2024-08-17 06:16] LABS: ANION GAP 11.7 mmol/L (5.0-14.0)
[2024-08-17] MEDS: Albuterol/Ipratropium 3.0-0.5 MG/3 ML Neb Soln NEB SCH (06:56)
[2024-08-17] MEDS: Insulin Lispro 100 Unit/ML 3 ML KwikPen SUBCUT SCH (07:32)
[2024-08-17] MEDS: Lidocaine 4% 1 each Patch TOP SCH (08:32)
[2024-08-17] MEDS: Cholecalciferol (Vitamin D3) 25 MCG Tab PO SCH (08:32)
[2024-08-17] MEDS: Gabapentin 300 MG Cap PO SCH (08:33)
[2024-08-17] MEDS: Polyethylene Glycol 3350 Powder 17 GM Packet PO SCH (08:33)
[2024-08-17] MEDS: Diltiazem 180 MG Cap.CD PO SCH (08:33)
[2024-08-17] MEDS: metFORMIN 500 MG Tab PO SCH (08:33)
[2024-08-17] MEDS: Apixaban 5 MG Tab PO SCH (08:33)
[2024-08-17] MEDS: Cetirizine 10 MG Tab PO SCH (08:33)
[2024-08-17] MEDS: Levothyroxine 100 MCG Tab PO SCH (08:34)
[2024-08-17] MEDS: Folic Acid 1 MG Tab PO SCH (08:34)
[2024-08-17] MEDS ORDERED: Lidocaine 4% 1 each Patch TOP SCH (09:00)
[2024-08-17] MEDS: Lisinopril 20 MG Tab PO SCH (10:07)
[2024-08-17] MEDS: Doxycycline 100 MG in Sodium Chloride 0.9% 100 ML IV SCH (11:50)
[2024-08-17] MEDS: Sodium Chloride 0.9% 100 ML IV ONE (13:38)
[2024-08-17] MEDS: Iopamidol 755 Mg/ML 100 ML Bottle IV SCH (13:38)
[2024-08-17] MEDS ORDERED: Levofloxacin/Dextrose 5%-Water 500 MG in Premix Bag 1 BAG IV SCH (21:00)
[2024-08-17] MEDS: Rosuvastatin 10 MG Tab PO SCH (21:36)
[2024-08-18 05:53] LABS: CREATININE 1.3 mg/dL (0.8-1.3); EST CRCL DRUG DOSING (CG) 53.06 mL/min; MAGNESIUM 1.5 mg/dL (1.8-2.4); POTASSIUM,K 4.3 mmol/L (3.6-5.2)
[2024-08-18 05:57] LABS: ANION GAP 10.3 mmol/L (5.0-14.0)
[2024-08-18] MEDS: Magnesium Oxide 400 MG Tab PO SCH (09:08)
[2024-08-18] MEDS: amLODIPine 5 MG Tab PO SCH (09:16)
[2024-08-18] MEDS: Hydrochlorothiazide 25 MG Tab PO SCH (09:16)
[2024-08-18] MEDS: Magnesium Sulfate/Water Premix 2 GM in Premix Bag 1 BAG IV SCH (09:34)
[2024-08-18] MEDS: Peripheral TPN 1 ML IV SCH (13:28)
[2024-08-19] MEDS: Lisinopril 20 MG Tab PO SCH (10:09)
[2024-08-19] MEDS: Diltiazem 120 MG Cap.CD PO SCH (10:11)
[2024-08-19] MEDS: Nystatin Topical Powder 15 GM Bottle TOP SCH (22:07)
[2024-08-19] MEDS: traMADol 50 MG Tab PO PRN (22:17)
[2024-08-20] MEDS ORDERED: Sodium Chloride 0.9% 10 ML ONE (11:08)
[2024-08-20] MEDS ORDERED: Bupivacaine 0.25% 10 ML SDV ONE (11:10)
[2024-08-20] MEDS ORDERED: methylPREDNISolone Acetate 80 MG/ML SDV ONE (11:10)
[2024-08-21] MEDS: Lisinopril 10 MG Tab PO SCH (08:48)
[2024-08-21] MEDS: Hydrochlorothiazide 25 MG Tab PO SCH (08:53)
[2024-08-21] MEDS ORDERED: Lisinopril 20 MG Tab PO SCH (09:00)
[2024-08-21] MEDS: Sennosides/Docusate Sodium 50-8.6 MG Tab PO PRN (11:13)
[2024-08-21] MEDS: Magnesium Hydroxide 400 MG/5 ML Susp 30 ML Cup PO PRN (11:13)
[2024-08-21] MEDS: Melatonin 3 MG Tab PO PRN (21:17)
[2024-08-21] MEDS: Doxycycline 100 MG Cap PO SCH (21:18)
[2024-08-22 05:30] LABS: ANION GAP 5.5 mmol/L (5.0-14.0); CALCIUM 9.6 mg/dL (8.5-10.1); CREATININE 1.1 mg/dL (0.8-1.3); EST CRCL DRUG DOSING (CG) 62.71 mL/min; MAGNESIUM 1.8 mg/dL (1.8-2.4); POTASSIUM,K 4.4 mmol/L (3.6-5.2)
[2024-08-22] MEDS ORDERED: Insulin NPH HUM/REG Insulin HM 100 UNIT/ML 3 ML Vial SQ SCH (11:45)
[2024-08-22] MEDS: Apixaban 5 MG Tab PO SCH (20:36)
[2024-08-23 05:16] VITALS: BP 123/76; PULSE 90
== END 2024-08-23 10:25 | DRG 190 ==
LOC: JP.ED 22:53 → JP.MS 08-17 01:19
PROVIDERS: ADMIT Registered Nurse; ATTEND Hospitalist
DX: J44.0 Chronic obstructive pulmonary disease with (acute) lower respiratory infection (principal); J96.01 Acute respiratory failure with hypoxia; J40 Bronchitis, not specified as acute or chronic; J44.1 Chronic obstructive pulmonary disease with (acute) exacerbation; J18.9 Pneumonia, unspecified organism; I10 Essential (primary) hypertension; G89.29 Other chronic pain; I48.91 Unspecified atrial fibrillation; I48.0 Paroxysmal atrial fibrillation; E78.5 Hyperlipidemia, unspecified; E11.9 Type 2 diabetes mellitus without complications; I34.0 Nonrheumatic mitral (valve) insufficiency; G47.33 Obstructive sleep apnea (adult) (pediatric); M06.9 Rheumatoid arthritis, unspecified; Z66 Do not resuscitate; M48.061 Spinal stenosis, lumbar region without neurogenic claudication; E11.649 Type 2 diabetes mellitus with hypoglycemia without coma; M54.42 Lumbago with sciatica, left side; M54.41 Lumbago with sciatica, right side; E66.9 Obesity, unspecified; E03.9 Hypothyroidism, unspecified; Z79.51 Long term (current) use of inhaled steroids; Z86.16 Personal history of COVID-19; Z90.49 Acquired absence of other specified parts of digestive tract; Z79.1 Long term (current) use of non-steroidal anti-inflammatories (NSAID); Z79.01 Long term (current) use of anticoagulants; Z79.899 Other long term (current) drug therapy; Z79.02 Long term (current) use of antithrombotics/antiplatelets; Z87.442 Personal history of urinary calculi; Z87.81 Personal history of (healed) traumatic fracture; Z79.2 Long term (current) use of antibiotics; Z79.84 Long term (current) use of oral hypoglycemic drugs; Z79.4 Long term (current) use of insulin; Z98.890 Other specified postprocedural states; Z79.890 Hormone replacement therapy; Z88.0 Allergy status to penicillin; Z88.5 Allergy status to narcotic agent; Z68.35 Body mass index [BMI] 35.0-35.9, adult
CPT/HCPCS: 36415; 70450; 71045; 71045-26; 71275; 71275-26; 80048; 80053; 82947; 83605; 83735; 83880; 84145; 85025; 85027; 85610; 86140; 87040; 87070; 87077; 87205; 93005; 93010; 93306; 94640; 96361; 96365; 96375; 97110-GO; 97110-GP; 97162-GP; 97165-GO; 99222; 99232; 99233; 99238; 99285; 99285-25; A9270-GY; J1010; J1815; J1815-GY; J1956; J3475; J3490; J7030; J7620; Q9967